=== PATIENT | female | born 1970 | race Caucasian/White ===

== ENCOUNTER 2016-04-09 11:28 | Outpatient (CLI) | payer OTHER ==
--- NOTE | 2016-04-09 11:54 | DIAGNOSTIC IMAGING REPORT ---
PROCEDURE: XR SHOULDER 2 OR MORE VW-LEFT INDICATION: ROTATOR CUFF IMPINGEMENT SYNDROME TECHNIQUE: Three views. COMPARISON: None. FINDINGS: Osseous structures and joint spaces are normal. IMPRESSION: 1. Normal left shoulder.
== END 2016-04-09 23:00 ==
LOC: XR SRH 11:28
DX: M75.100 Unspecified rotator cuff tear or rupture of unspecified shoulder, not specified as traumatic (principal)